=== PATIENT | female | born 1975 | race Caucasian/White ===

== ENCOUNTER → 2017-03-27 | Outpatient (CLI) | payer OTHER, MEDICAID ==
[2017-03-27 11:49] LABS: Basophils % (A) 1 %; CH 27.3; CHCM 31.2; Eosinophils # (A) 0.1 k/uL (0-0.7); Eosinophils % (A) 1 %; HCT 45.5 % (34.0-46.0); HDW 2.22; HGB 14.3 gm/dL (11.4-16.0); Luc # (Auto) 0.13; Luc % (Auto) 2; Lymphocytes # (A) 1.6 k/uL (1.0-4.8); Lymphocytes % (A) 28 %; MCH 27.6 pg (25.0-35.0); MCHC 31.4 g/dL (31.0-37.0); MCV 87.8 fL (80.0-100.0); Mean Platelet Volume 7.1; Monocytes # (A) 0.3 k/uL (0-1.0); Monocytes % (A) 6 %; Neutrophils # (A) 3.7 k/uL (1.3-7.7); Neutrophils % (A) 63 %; RBC 5.19 m/uL (3.80-5.40); RDW 13.8 % (11.5-15.5); WBC 5.8 k/uL (3.8-10.6); WBC (Perox) 5.35
[2017-03-27 12:19] LABS: ALT 35 U/L (9-52); AST 27 U/L (14-36); Alkaline Phosphatase 65 U/L (38-126); Anion Gap 11 mmol/L; Blood Urea Nitrogen 10 mg/dL (7-17); Calcium 9.7 mg/dL (8.4-10.2); Carbon Dioxide 26 mmol/L (22-30); Chloride 106 mmol/L (98-107); Cholesterol 205 mg/dL (<200); Glucose 86 mg/dL (74-99); HDL Cholesterol 56 mg/dL (40-60); Non-African American GFR(MDRD) >60 (>60 ml/min/1.73 sqM); Potassium 4.7 mmol/L (3.5-5.1); Sodium 143 mmol/L (137-145); Total Bilirubin 0.3 mg/dL (0.2-1.3); Total Protein 7.3 g/dL (6.3-8.2); Triglycerides 72 mg/dL (<150)
== END | disposition home or self-care (01) ==
LOC: LABWHC1 11:09
PROVIDERS: ATTEND Family Medicine
DX: Z00.00 Encounter for general adult medical examination without abnormal findings (principal); F33.0 Major depressive disorder, recurrent, mild; G43.909 Migraine, unspecified, not intractable, without status migrainosus
CPT/HCPCS: 36415; 80053; 80061; 85025

== ENCOUNTER → 2017-05-31 | Outpatient (CLI) | payer OTHER, MEDICAID ==
[2017-05-31 15:19] LABS: Appearance,Urine Clear (Clear); Bacteria,Urine Rare /hpf; Bilirubin,Urine Negative (Negative); Glucose,Urine (UA) Negative (Negative); Ketones,Urine Negative (Negative); Leukocyte Esterase,Urine Small (Negative); Nitrite,Urine Positive (Negative); Particle Count 18243; Protein,Urine Negative (Negative); RBC,Urine 1 /hpf (0-5); Specific Gravity,Urine 1.004 (1.001-1.035); Squamous Epithelial Cell,Urine <1 /hpf (0-4); UA Billing (MACRO vs. MICRO) MICRO; Urobilinogen,Urine <2.0 mg/dL (<2.0); WBC,Urine 10 /hpf (0-5)
== END | disposition home or self-care (01) ==
LOC: LABWHC1 14:30
PROVIDERS: ATTEND Obstetrics & Gynecology
DX: R35.0 Frequency of micturition (principal)
CPT/HCPCS: 81001; 87077; 87086; 87186

== ENCOUNTER → 2017-06-23 | Outpatient (CLI) | payer OTHER, MEDICAID ==
--- NOTE | 2017-06-24 22:39 | US ---
EXAMINATION TYPE: US pelvic complete DATE OF EXAM: 06/23/2017 COMPARISON: NONE CLINICAL HISTORY: 41-year-old female N92.1 Break through bleeding. Patient has IUD. LMP unsure as pat ient has had IUD for about 8 years TECHNIQUE: Transabdominal (TA) Date of LMP: Unsure FINDINGS: EXAM MEASUREMENTS: Uterus: Anteverted measuring 7.5 x 3.6 x 3.7 cm there are cervical nabothian cysts measuring 8 mm in the cervix. Endometrial Stripe: 0.3 cm, and with the IUD appropriately situated along the uterine cavity. Right Ovary: 2.4 x 2.0 x 2.3 cm Left Ovary: 3.2 x 2.3 x 2.9 cm with a 1.8 cm dominant follicle or functional cyst. No evident adnexal abnormality. Trace cul-de-sac free fluid is likely physiologic. IMPRESSION: IUD is seen appropriately centered along the uterine cavity. Trace cul-de-sac free fluid likely physi ologic.
== END | disposition home or self-care (01) ==
LOC: RADUSMAIN 15:57
PROVIDERS: ATTEND Obstetrics & Gynecology
DX: N92.1 Excessive and frequent menstruation with irregular cycle (principal); Z97.5 Presence of (intrauterine) contraceptive device
CPT/HCPCS: 76856

== ENCOUNTER 2018-12-10 14:26 | Emergency (ER) | payer MEDICAID, OTHER ==
[2018-12-10 14:31] VITALS: BP 106/67; PULSE 99; RESP 18; TEMP 97.6
[2018-12-10] MEDS ORDERED: PROPARACAINE 0.5% OPHTH DROPS 15 ML BTL BOTH EYES STA (14:35)
[2018-12-10] MEDS ORDERED: TOBRAMYCIN 0.3% OPHTH DROPS 5 ML BTL RIGHT EYE STA (15:08)
--- NOTE | 2018-12-10 15:18 | ED ---
Eye Problem HPI - General Chief complaint: Eye Problems Stated complaint: Eye Pain Time Seen by Provider: 12/10/18 14:35 Source: patient, RN notes reviewed, old records reviewed Mode of arrival: ambulatory Limitations: no limitations - History of Present Illness Initial comments: Patient is a 43-year-old female presents emergency department today with left eye irritation. Patient reports that she was wearing "decorative contacts". Patient states she was wearing them yesterday. She did come up appropriately and wash her hands before and after. Patient states that today she's been having some rotation of the left eye feeling there is a scratch or foreign body within the eye. Patient states that she's had no other symptoms. She denies any visual disturbances. Patient states that she does not wear contacts regularly. She wears occasional reading glasses. Patient denies any recent fever, chills, shortness of breath, chest pain, back pain, abdominal pain, nausea vomiting, numbness or tingling, dysuria or hematuria, constipation or diarrhea, headaches or visual changes, or any other current symptoms - Related Data Home Medications Medication Instructions Recorded Confirmed Cyclobenzaprine [Flexeril] 5 mg PO DAILY PRN 05/09/16 08/24/16 HYDROcodone/APAP 5-325MG [[place] 1 tab PO Q4HR PRN 05/09/16 08/24/16 5-325] LORazepam [Ativan] 1 mg PO BID PRN 05/09/16 08/24/16 SUMAtriptan SUCCINATE [Imitrex] 25 mg PO DIRECTED PRN 05/09/16 08/24/16 lamoTRIgine [LaMICtal] 200 mg PO DAILY 05/09/16 08/24/16 Multivitamins, Thera [Multivitamin] 1 caplet PO DAILY 05/25/16 08/24/16 Acetaminophen Tab [Tylenol Tab] 1,000 mg PO Q6HR PRN 08/22/16 08/22/16 Aspirin/Acetaminophen/Caffeine 2 each PO DIRECTED PRN 08/22/16 08/24/16 [Excedrin Migraine Caplet] Cholecalciferol [Vitamin D3] 400 unit PO DAILY 08/22/16 08/22/16 Escitalopram Oxalate [Lexapro] 20 mg PO DAILY 08/22/16 08/24/16 Ibuprofen [Motrin] 400 mg PO DIRECTED PRN 08/22/16 08/24/16 Mirena 1 applicate VAGINAL DIRECTED 08/22/16 08/22/16 Sulfamethox-Tmp 800-160Mg [Bactrim 1 tab PO Q12HR 08/22/16 08/24/16 DS 800-160 mg] diphenhydrAMINE HCL [Benadryl] 25 - 50 mg PO DIRECTED PRN 08/22/16 08/24/16 valACYclovir HCL [Valtrex] 1,000 mg PO Q12HR 08/22/16 08/24/16 Previous Rx's Medication Instructions Recorded Tobramycin 0.3% Ophth Soln [Tobrex 1 drop BOTH EYES Q4H #1 bottle 12/10/18 0.3% Ophth Soln] Allergies Allergy/AdvReac Type Severity Reaction Status Date / Time No Known Allergies Allergy Verified 12/10/18 14:31 Review of Systems ROS Statement: Those systems with pertinent positive or pertinent negative responses have been documented in the HPI. ROS Other: All systems not noted in ROS Statement are negative. Past Medical History Additional Past Medical History / Comment(s): migraines, recent UTI History of Any Multi-Drug Resistant Organisms: None Reported Past Surgical History: Hernia Repair, Orthopedic Surgery Additional Past Surgical History / Comment(s): lt knee-arthroscopy, deviated septum repair Past Anesthesia/Blood Transfusion Reactions: No Reported Reaction Past Psychological History: Depression Smoking Status: Never smoker Past Alcohol Use History: Occasional Past Drug Use History: None Reported - Past Family History Mother Family Medical History: No Reported History General Exam - General Exam Comments Initial Comments: 43-year-old female. Alert and oriented 3. No significant distress. Limitations: no limitations General appearance: alert, in no apparent distress Head exam: Present: atraumatic, normocephalic, normal inspection Eye exam: Present: normal appearance, PERRL, EOMI, conjunctival injection (Minimal left), other (Patient has a small abrasion over the 6 o'clock position of the iris. Patient has no retained foreign body. Minimal conjunctival injection. No drainage from the eye.). Absent: scleral icterus, periorbital swelling ENT exam: Present: normal exam, mucous membranes moist Neck exam: Present: normal inspection. Absent: tenderness, meningismus, lymphadenopathy Respiratory exam: Present: normal lung sounds bilaterally. Absent: respiratory distress, wheezes, rales, rhonchi, stridor Extremities exam: Present: normal inspection, full ROM, normal capillary refill. Absent: tenderness, pedal edema, joint swelling, calf tenderness Back exam: Present: normal inspection Neurological exam: Present: alert, oriented X3, CN II-XII intact Psychiatric exam: Present: normal affect, normal mood Skin exam: Present: warm Course Vital Signs 12/10/18 14:27 Temperature 97.6 F Pulse Rate 99 Respiratory 18 Rate Blood Pressure 106/67 O2 Sat by Pulse 100 Oximetry Medical Decision Making - Medical Decision Making Is a 43-year-old female presents today with left eye irritation. Symptoms started after decorative contacts. Patient has a possible small abrasion over the 6 o'clock position. No signs of ulceration or significant uptake. No foreign body retained within the eye. Visual acuity is intact. Patient has no drainage from the eye. At this time Patient will be started on tobramycin eye ointment. Given dose in emergency arm. Patient will be discharged with follow- up with ophthalmology. Discussed strict return parameters and ophthalmology referral. Disposition Clinical Impression: Corneal irritation of left eye Disposition: HOME SELF-CARE Condition: Good Instructions (If sedation given, give patient instructions): Corneal Abrasion (ED) Additional Instructions: Patient advised to follow-up with ophthalmology. Return to the emergency department if any alarming signs or symptoms occur. Patient should put the eyedrop in the eye every 4 hours. Close return parameters of the eye continues to worsen or again have the follow-up with senior training and development rep. Prescriptions: Tobramycin 0.3% Ophth Soln [Tobrex 0.3% Ophth Soln] 1 drop BOTH EYES Q4H #1 bottle Is patient prescribed a controlled substance at d/c from ED?: No Referrals: Clint Horne Jr, DO [Primary Care Provider] - 1-2 days Rj Bear MD [STAFF PHYSICIAN] - 1-2 days Time of Disposition: 15:16
== END 2018-12-10 15:45 | disposition home or self-care (01) ==
LOC: EC 14:26
DX: H18.892 Other specified disorders of cornea, left eye (principal); F32.9 Major depressive disorder, single episode, unspecified; F17.200 Nicotine dependence, unspecified, uncomplicated
CPT/HCPCS: 99283

== ENCOUNTER → 2019-09-25 | Outpatient (CLI) | payer MEDICAID, OTHER ==
[2019-09-25 12:50] LABS: Basophils % (A) 0 %; Eosinophils # (A) 0.1 k/uL (0-0.7); Eosinophils % (A) 1 %; HCT 39.6 % (34.0-46.0); HGB 12.8 gm/dL (11.4-16.0); Hypochromasia Slight; Lymphocytes # (A) 1.7 k/uL (1.0-4.8); Lymphocytes % (A) 27 %; MCH 26.9 pg (25.0-35.0); MCHC 32.3 g/dL (31.0-37.0); MCV 83.2 fL (80.0-100.0); Monocytes # (A) 0.4 k/uL (0-1.0); Monocytes % (A) 6 %; Neutrophils % (A) 64 %; Platelet Count 342 k/uL (150-450); RBC 4.76 m/uL (3.80-5.40); RDW 13.7 % (11.5-15.5); WBC 6.2 k/uL (3.8-10.6)
[2019-09-25 18:53] LABS: African American GFR (CKD) 103.9 (60.0-200.0); Anion Gap 5.9 mmol/L (4.00-12.00); BUN/Creat Ratio 13.75 Ratio (12.00-20.00); Calcium 9.2 mg/dL (8.7-10.3); Carbon Dioxide 27.1 mmol/L (21.6-31.8); Chol/HDL Ratio 4.18; LDL Cholesterol,Calculated 144.6 mg/dL (0.0-131.0); Non-African American GFR(CKD) 89.7 (60.0-200.0); Potassium 4.1 mmol/L (3.5-5.5); VLDL Calculation 14.4 mg/dL (5.00-40.00)
== END | disposition home or self-care (01) ==
LOC: LABWHC1 12:19
PROVIDERS: ATTEND Family Medicine
DX: F33.0 Major depressive disorder, recurrent, mild (principal)
CPT/HCPCS: 36415; 80048; 80061; 84450; 84460; 85025

== ENCOUNTER → 2020-02-21 | Outpatient (CLI) | payer MEDICAID, OTHER ==
--- NOTE | 2020-02-21 09:57 | CT ---
EXAMINATION TYPE: CT brain wo/w con DATE OF EXAM: 02/21/2020 COMPARISON: 04/06/2016 HISTORY: Headache. Family history of brain tumors. CT DLP: 1963.4 mGycm Automated Exposure Control for Dose Reduction was Utilized. TECHNIQUE: CT scan of the head is performed with IV contrast.,CT scan of the head is performed withou t and with without and with IV Contrast, patient injected with 100 mL of Isovue M300. COMPARISON: None. FINDINGS: Noncontrast images show no acute intracranial hemorrhage or midline shift. The ventricles and sulci are within normal limits in size. Postcontrast images show no suspicious enhancing intrapa renchymal mass. The globes are symmetric. No significant changes of sinusitis or mastoiditis. The cerebellar tonsils are low-lying in position correlate for Chiari I malformation. Calcification t he region of the pineal gland noted. IMPRESSION: 1. Low-lying cerebellar tonsils correlate for Chiari malformation. MRI recommended. 2. No enhancing mass.
== END | disposition home or self-care (01) ==
LOC: RADCTMAIN 09:17
PROVIDERS: ATTEND Nurse Practitioner Family
DX: R51 Headache (principal)
CPT/HCPCS: 70470; Q9967

== ENCOUNTER → 2020-03-02 | Outpatient (CLI) | payer MEDICAID, OTHER ==
--- NOTE | 2020-03-02 21:43 | XR ---
EXAMINATION TYPE: XR lumbar spine 2 or 3V DATE OF EXAM: 03/02/2020 CLINICAL HISTORY: Low back pain down left leg for one week. TECHNIQUE: Frontal and lateral images of the lumbar spine are obtained. COMPARISON: None FINDINGS: There are 5 lumbar type vertebral bodies identified. The lumbar spine shows satisfactory alignment without evidence of acute fracture or dislocation. Vertebral body heights and disk space he ights are within normal limits. Metallic IUD overlies the right mid to lower sacrum. IMPRESSION: Unremarkable study.
--- NOTE | 2020-03-02 21:44 | XR ---
EXAMINATION TYPE: XR Hip Complete LT DATE OF EXAM: 03/02/2020 CLINICAL HISTORY: Left hip pain for one week. TECHNIQUE: AP and frogleg views of the left hip are obtained. COMPARISON: None. FINDINGS: There is no acute fracture/dislocation evident in the left hip. Mild to borderline moderat e axial joint space loss without significant acetabular spurring. Femoral head shape is maintained. N o suspicious focal lytic or sclerotic lesion. The overlying soft tissue appears unremarkable. IMPRESSION: As above.
== END | disposition home or self-care (01) ==
LOC: RADXRMAIN 15:59
PROVIDERS: ATTEND Family Medicine
DX: M54.5 Low back pain (principal); M54.16 Radiculopathy, lumbar region
CPT/HCPCS: 72100; 73502

== ENCOUNTER → 2020-03-27 | Outpatient (CLI) | payer OTHER ==
--- NOTE | 2020-03-27 14:53 | XR ---
EXAMINATION TYPE: XR tibia fibula LT DATE OF EXAM: 03/27/2020 COMPARISON: None HISTORY: Pain, history of fracture TECHNIQUE: 2 view left tibia and fibula FINDINGS: No acute fractures are evident. Joint spaces appear preserved. Soft tissues are unremarkabl e. IMPRESSION: 1. Normal 2 view left tibia and fibula. 2. Follow-up exams can be performed 7-10 days from acute trauma for continued pain.
== END | disposition home or self-care (01) ==
LOC: RADXRMAIN 13:40
PROVIDERS: ATTEND Family Medicine
DX: M79.662 Pain in left lower leg (principal)

== ENCOUNTER → 2020-05-01 | Outpatient (CLI) | payer OTHER ==
--- NOTE | 2020-05-01 12:22 | US ---
EXAMINATION TYPE: US transvaginal DATE OF EXAM: 05/01/2020 COMPARISON: And 13 7 CLINICAL HISTORY: Z97.5 IUD Placement. TECHNIQUE: Transvaginal (TV Date of LMP: Not since IUD insert EXAM MEASUREMENTS: Uterus: 8.2 x 4.8 x 5.2 cm Endometrial Stripe: 0.4 cm Right Ovary: 2.6 x 2.6 x 1.5 cm Left Ovary: 3.3 x 2.6 x 2.7 cm 1. Uterus: Anteverted wnl 2. Endometrium: wnl 3. Right Ovary: wnl 4. Left Ovary: wnl 5. Bilateral Adnexa: wnl 6. Posterior cul-de-sac: small amount of ff IUD appears in place. IMPRESSION: 1. Small amount of free fluid in the cul-de-sac otherwise no abnormality noted.
== END | disposition home or self-care (01) ==
LOC: RADUSWWP 11:50
PROVIDERS: ATTEND Obstetrics & Gynecology
DX: Z13.89 Encounter for screening for other disorder (principal); Z97.5 Presence of (intrauterine) contraceptive device
CPT/HCPCS: 76830

== ENCOUNTER → 2020-06-02 | Outpatient (CLI) | payer OTHER ==
--- NOTE | 2020-06-04 10:47 | MM ---
Reason for exam: screening (asymptomatic). Last mammogram was performed 2 years and 11 months ago. History: Family history of breast cancer in maternal grandmother. Benign excisional biopsy of the right breast. Taking hormonal contraceptives for 8 years. Physical Findings: A clinical breast exam by your physician is recommended on an annual basis and results should be correlated with mammographic findings. MG 3D Screening Mammo W/Cad Bilateral CC and MLO view(s) were taken. Prior study comparison: July 06, 2017, bilateral MG 3d screening mammo w/cad. November 07, 2013, bilateral digital screening mammo w/CAD. The breast tissue is extremely dense which could obscure a lesion on mammography. No significant changes when compared with prior studies. ASSESSMENT: Benign, BI-RAD 2 RECOMMENDATION: Routine screening mammogram of both breasts in 1 year.
== END | disposition home or self-care (01) ==
LOC: RADMAMWWP 16:03
PROVIDERS: ATTEND Obstetrics & Gynecology
DX: Z12.31 Encounter for screening mammogram for malignant neoplasm of breast (principal)
CPT/HCPCS: 77063; 77067